=== PATIENT | female | born 1970 | race Caucasian/White ===

== ENCOUNTER 2019-07-29 15:04 | Outpatient (CLI) | payer MEDICAID ==
[2019-07-29 18:38] LABS: BASOPHILS % (AUTO) 0.4 %; EOSINOPHILS # (AUTO) 0.1 10^3/uL (0.0-0.7); EOSINOPHILS % (AUTO) 1.7 %; HGB - HEMOGLOBIN 11.3 g/dL (12.0-16.0); LYMPHOCYTES # (AUTO) 2.1 10^3/uL (1.5-3.5); LYMPHOCYTES % (AUTO) 26.5 %; MEAN CORPUSCULAR HEMOGLOBIN 24.6 pg (27.0-31.0); MEAN CORPUSCULAR HGB CONC 30.4 g/dL (32.0-36.0); MEAN CORPUSCULAR VOLUME 80.9 fL (81.0-99.0); MONOCYTES # (AUTO) 0.6 10^3/uL (0.0-1.0); MONOCYTES % (AUTO) 7.3 %; NEUTROPHILS % (AUTO) 63.8 %; PLT - PLATELET COUNT 173 10^3/uL (130-450); RED CELL DISTRIBUTION WIDTH 18.6 % (12.0-15.0); WHITE BLOOD COUNT 7.8 x10^3/uL (4.8-10.8)
[2019-07-29 18:46] LABS: ALBUMIN/GLOBULIN RATIO 0.7 (1.0-2.2); ALKALINE PHOSPHATASE 142 IU/L (42-121); ALT ALANINE AMINOTRANSFERASE 25 IU/L (10-60); AST ASPARTATE AMINOTRANSFERASE 43 IU/L (10-42); BILIRUBIN,TOTAL 0.8 mg/dL (0.2-1.0); BUN - BLOOD UREA NITROGEN 10 mg/dL (6-20); CALCIUM 8.9 mg/dL (8.5-10.3); CARBON DIOXIDE - CO2 25 mmol/L (21-32); CHLORIDE 105 mmol/L (101-111); CHOL/HDL RATIO 3.2 (<4.4); CHOLESTEROL 97 mg/dL; CREATININE 0.4 mg/dL (0.4-1.0); GLUCOSE 137 mg/dL (70-100); HDL CHOLESTEROL 30 mg/dL; LDL CHOLESTEROL,CALCULATED 52 mg/dL; LDL/HDL RATIO 1.7 (<4.4); SODIUM 136 mmol/L (135-145); TOTAL PROTEIN 7.3 g/dL (6.7-8.2); VLDL CHOLESTEROL 15 mg/dL
[2019-07-29 19:03] LABS: HB2 TOTAL 11.7 g/dL; HEMOGLOBIN A1C 0.53 g/dL; HEMOGLOBIN A1C % 6.3 % (4.6-6.2)
[2019-07-29 20:14] LABS: FREE T4 (FREE THYROXINE) 4.62 ng/dL (0.58-1.64)
== END 2019-07-29 23:59 | disposition home or self-care (01) ==
LOC: LAB.WCP 15:04
PROVIDERS: ATTEND Physician Assistant
DX: Z00.00 Encounter for general adult medical examination without abnormal findings (principal)
CPT/HCPCS: 36415; 80053; 80061; 83036; 83721; 84439; 84443; 85025

== ENCOUNTER 2019-08-21 11:38 | Outpatient (CLI) | payer MEDICAID ==
--- NOTE | 2019-08-21 14:14 | Ultrasound Report ---
PROCEDURE: Abdomen Limited INDICATIONS: HYPERTHYROID, ELEVATED LFTS TECHNIQUE: Real-time focused scanning was performed of the right upper quadrant, with image documentation. COMPARISON: None available FINDINGS: Technically limited study secondary to patient body habitus and lack of good acoustic wind ows. Suboptimal visualization of the liver parenchyma. The parenchyma is diffusely hyperechoic, coarse, an d heterogeneous. A discrete mass is not identified, but would easily be missed. The gallbladder is normal without stones, sludge, wall thickening, or pericholecystic fluid. The bili ryley tree is nondilated. The pancreas was not visible. The right kidney measures 11.2 cm in length. A few small echogenic foci are present in the mid to low er pole collecting system, the largest measuring 4 mm. No hydronephrosis. No obvious right upper quadrant fluid. IMPRESSION: 1. Limited study due to lack of good acoustic window. 2. Heterogeneous and hyperechoic hepatic parenchyma is incompletely evaluated. Overall parenchyma mckeon ses the possibility of intrinsic liver disease and/or steatosis. Further evaluation with cross-sectio nal imaging, MRI or CT is recommended. 3. No biliary dilatation or gallbladder pathology. 4. Nonvisualization of the pancreas. 5. Nonobstructing right intrarenal calcifications. Reviewed by: Wilda Grimes MD on 08/21/2019 2:13 PM PDT Approved by: Wilda Grimes MD on 08/21/2019 2:13 PM PDT Station ID: [id number]
--- NOTE | 2019-08-21 14:19 | Ultrasound Report ---
PROCEDURE: Head or Neck Soft Tissue INDICATIONS: HYPERTHYROID, ELEVATED LFTS TECHNIQUE: Real-time scanning was performed of the thyroid gland, with image documentation. COMPARISON: None. FINDINGS: Right: The right thyroid lobe measures 5.6 x 2.8 x 2.3 cm. Left: The left thyroid lobe measures 6.2 x 2.5 x 2.2 cm. Isthmus: 9 mm Lobulated and heterogeneous morphology of the entire thyroid gland with multiple ill-defined areas of nodularity and to a lesser extent cystic changes. No dominant nodules are identified. There are enlarged cervical chain lymph nodes found bilaterally, the largest on the right measures 1. 4 cm in short axis and large some left measures 1.0 cm in short axis. Both maintain a fatty hilum, bu t diffusely thickened cortex measuring 5 mm on the right and 4 mm on the left. IMPRESSION: 1. Enlarged thyroid gland with heterogeneous appearance. Findings are suggestive of thyroiditis. 2. There is reactive cervical chain adenopathy. Reviewed by: Wilda Grimes MD on 08/21/2019 2:18 PM PDT Approved by: Wilda Grimes MD on 08/21/2019 2:18 PM PDT Station ID: [id number]
== END 2019-08-21 11:39 | disposition home or self-care (01) ==
LOC: DI 11:38
PROVIDERS: ATTEND Physician Assistant
DX: E04.9 Nontoxic goiter, unspecified (principal); R59.0 Localized enlarged lymph nodes; N28.89 Other specified disorders of kidney and ureter; R93.2 Abnormal findings on diagnostic imaging of liver and biliary tract
CPT/HCPCS: 76536; 76705

== ENCOUNTER 2019-10-30 07:00 | Outpatient (CLI) | payer MEDICAID ==
[2019-10-30 19:07] LABS: THYROID STIMULATING HORMONE < 0.08 uIU/mL (0.34-5.60)
[2019-10-30 19:09] LABS: FREE T3 9.56 pg/mL (2.5-3.9); FREE T4 (FREE THYROXINE) 4.11 ng/dL (0.58-1.64)
[2019-10-30 20:12] LABS: HEMOGLOBIN A1c% 6.6 % (4.27-6.07)
[2019-10-31 13:21] LABS: HEPATITIS C ANTIBODY REACTIVE (NON-REACTIVE)
[2019-10-31 13:22] LABS: HEPATITIS B SURFACE ANTIGEN NON-REACTIVE (NON-REACTIVE)
[2019-11-02 08:30] LABS: HCV RNA QNT 6.22 Log IU/mL (NOT DETECTED); HCV RNA QUANT RT PCR 1670000 IU/mL (NOT DETECTED)
== END 2019-10-30 23:59 | disposition home or self-care (01) ==
LOC: LAB.WCP 07:00
PROVIDERS: ATTEND Physician Assistant
DX: E11.9 Type 2 diabetes mellitus without complications (principal); R79.89 Other specified abnormal findings of blood chemistry; E05.90 Thyrotoxicosis, unspecified without thyrotoxic crisis or storm
CPT/HCPCS: 36415; 83036; 84439; 84443; 84481; 86803; 87340

== ENCOUNTER 2019-11-25 20:42 | Inpatient (IN) | payer MEDICAID ==
[2019-11-25] MEDS ORDERED: SODIUM CHLORIDE 0.9% 1,000 ML IV STA ×2 (20:57→23:26)
[2019-11-25 21:14] LABS: BASOPHILS % (AUTO) 0.5 %; EOSINOPHILS # (AUTO) 0.1 10^3/uL (0.0-0.7); HGB - HEMOGLOBIN 11.7 g/dL (12.0-16.0); LYMPHOCYTES # (AUTO) 2.7 10^3/uL (1.5-3.5); LYMPHOCYTES % (AUTO) 32.1 %; MEAN CORPUSCULAR HEMOGLOBIN 26.5 pg (27.0-31.0); MEAN CORPUSCULAR VOLUME 85.7 fL (81.0-99.0); MEAN PLATELET VOLUME 12.2 fL (7.9-10.8); MONOCYTES # (AUTO) 0.7 10^3/uL (0.0-1.0); MONOCYTES % (AUTO) 8.8 %; NEUTROPHILS # (AUTO) 4.7 10^3/uL (1.5-6.6); NEUTROPHILS % (AUTO) 57.2 %; PLT - PLATELET COUNT 143 10^3/uL (130-450); RED BLOOD COUNT 4.41 10^6/uL (4.20-5.40); RED CELL DISTRIBUTION WIDTH 13.3 % (12.0-15.0); WHITE BLOOD COUNT 8.3 x10^3/uL (4.8-10.8)
[2019-11-25 21:16] LABS: VBG BASE EXCESS -1.4 mmol/L (-2 - +2); VBG PCO2 43.4 mmHg (41-51); VBG PH 7.362 (7.31-7.41); VBG PO2 40.7 mmHg (25-47); VBG TOTAL CO2 25.4 mmol/L (24-29)
--- NOTE | 2019-11-25 21:16 | ED Physician Documentation ---
History of Present Illness - Stated complaint Stated Complaint: HIGH BS - Chief complaint Chief Complaint: General - History obtained from History obtained from: Patient - History of Present Illness Timing: How many days ago (3) - Additonal information Additional information: 49-year-old female with history of type 2 diabetes who is not on medication has developed polyuria polydipsia blurred vision headache and dizziness over the past 3 days. She noticed yesterday that she was not able to drive her blurry vision was so bad. She went to see her doctor today got a telephone call and she and her come to the emergency department immediately with a blood sugar of 1030. Review of Systems Constitutional: denies: Fever Eyes: reports: Other (blurring of the vision). denies: Decreased vision Ears: denies: Ear pain Nose: denies: Rhinorrhea / runny nose, Congestion Throat: reports: Other (dry mouth, very dry mouth). denies: Sore throat Cardiac: denies: Chest pain / pressure, Palpitations Respiratory: denies: Dyspnea, Cough GI: denies: Abdominal Pain, Abdominal Swelling, Nausea, Vomiting : reports: Frequency. 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 - Allergies Allergies/Adverse Reactions: Allergies Allergy/AdvReac Type Severity Reaction Status Date / Time bee venom protein (honey bee) Allergy Unknown Verified 11/25/19 21:00 strawberry Allergy Unknown Verified 11/25/19 21:00 - Social History Does the pt smoke?: No Smoking Status: Never smoker Does the pt drink ETOH?: No Does the pt have substance abuse?: No - Immunizations Immunizations are current?: Yes - POLST Patient has POLST: No PD ED PE NORMAL - Vitals Vital signs reviewed: Yes (tachy and hypertensive ) - General General: Alert and oriented X 3, No acute distress, Well developed/nourished - HEENT HEENT: Atraumatic, PERRL, EOMI - Neck Neck: Supple, no meningeal sign, No bony TTP - Cardiac Cardiac: No murmur, Other (tachy) - Respiratory Respiratory: No respiratory distress, Clear bilaterally - Abdomen Abdomen: Normal bowel sounds, Soft, Non tender, Non distended, No organomegaly - Back Back: No CVA TTP, No spinal TTP - Derm Derm: Normal color, Warm and dry, No rash - Extremities Extremities: No deformity, Normal ROM s pain, No edema, No calf tenderness / cord - Neuro Neuro: Alert and oriented X 3, behavioral geneticist 2-12 intact, No motor deficit, No sensory deficit, Normal speech Eye Opening: Spontaneous Motor: Obeys Commands Verbal: Oriented GCS Score: 15 - Psych Psych: Normal mood, Normal affect Results - Vitals Vitals: Vital Signs - 24 hr 11/25/19 11/25/19 11/25/19 20:47 20:53 21:41 Temperature 37.1 C 37.1 C 37.1 C Heart Rate 120 H 120 H 82 Respiratory 22 22 15 Rate Blood Pressure 141/110 H 141/110 H 116/65 O2 Saturation 97 97 97 11/25/19 22:29 Temperature 37.1 C Heart Rate 81 Respiratory 16 Rate Blood Pressure 107/62 O2 Saturation 98 Oxygen O2 Source Room air - Labs Labs: Laboratory Tests 11/25/19 11/25/19 11/25/19 21:08 21:08 21:08 WBC 8.3 RBC 4.41 Hgb 11.7 L Hct 37.8 MCV 85.7 MCH 26.5 L MCHC 31.0 L RDW 13.3 Plt Count 143 MPV 12.2 H Neut # (Auto) 4.7 Lymph # (Auto) 2.7 [place] # (Auto) 0.7 Eos # (Auto) 0.1 Baso # (Auto) 0.0 Absolute Nucleated RBC 0.00 Nucleated RBC % 0.0 VBG pH VBG pCO2 VBG pO2 VBG HCO3 VBG Total CO2 VBG O2 Saturation VBG Base Excess Sodium 116 L* Potassium 4.4 Chloride 76 L* Carbon Dioxide 26 Anion Gap 14.0 H BUN 9 Creatinine 1.3 H Estimated GFR (MDRD) 44 L Glucose 1170 H* Estimat Average Glucose 269 H Hemoglobin A1c % 11.0 H Calcium 8.7 Phosphorus 5.4 H Magnesium 2.1 Total Bilirubin 0.8 AST 35 ALT 31 Alkaline Phosphatase 162 H Total Protein 7.4 Albumin 3.5 Globulin 3.9 Albumin/Globulin Ratio 0.9 L Lipase Cancelled Urine Color Urine Clarity Urine pH Ur Specific [place] Urine Protein Urine Glucose (UA) Urine Ketones Urine Occult Blood Urine Nitrite Urine Bilirubin Urine Urobilinogen Ur Leukocyte Esterase Urine RBC Urine WBC Ur Squamous Epith Cells Urine Bacteria Ur Microscopic Review Urine Culture Comments Urine HCG, Qual Serum Ketones NEGATIVE 11/25/19 11/25/19 21:08 22:03 WBC RBC Hgb Hct MCV MCH MCHC RDW Plt Count MPV Neut # (Auto) Lymph # (Auto) [place] # (Auto) Eos # (Auto) Baso # (Auto) Absolute Nucleated RBC Nucleated RBC % VBG pH 7.362 VBG pCO2 43.4 VBG pO2 40.7 VBG HCO3 24.1 VBG Total CO2 25.4 VBG O2 Saturation 75.8 VBG Base Excess -1.4 Sodium Potassium Chloride Carbon Dioxide Anion Gap BUN Creatinine Estimated GFR (MDRD) Glucose Estimat Average Glucose Hemoglobin A1c % Calcium Phosphorus Magnesium Total Bilirubin AST ALT Alkaline Phosphatase Total Protein Albumin Globulin Albumin/Globulin Ratio Lipase Urine Color YELLOW Urine Clarity CLEAR Urine pH 6.0 Ur Specific [place] <=1.005 Urine Protein NEGATIVE Urine Glucose (UA) >=1000 H Urine Ketones NEGATIVE Urine Occult Blood MODERATE H Urine Nitrite NEGATIVE Urine Bilirubin NEGATIVE Urine Urobilinogen 0.2 (NORMAL) Ur Leukocyte Esterase NEGATIVE Urine RBC 6-10 H Urine WBC 0-3 Ur Squamous Epith Cells RARE Squamous Urine Bacteria Rare Ur Microscopic Review INDICATED Urine Culture Comments NOT INDICATED Urine HCG, Qual NEGATIVE Serum Ketones Procedures - IVC sono (time) 0918 Bedside IVC sono: IVC measures (cm) (0.87), IVC collapsed c insp (cm) (complete), Dehydration (est 2 liters deficit) PD MEDICAL DECISION MAKING - ED course Complexity details: reviewed results, re-evaluated patient, considered differential, d/w patient ED course: 49 y/o female with markedly elevated blood sugar with untreated type 2 diabetes. She had attempted to start metformin 3 months ago and found this intolerable. Her A1C at that time was 6.3 and she was relegated to diet control. She has 3 days of symptoms of elevated blood sugar and is found to have extremely high blood sugar. saline is begun with the calculated effective plasma osmolality is (116 X 2) + 1170/18 =297. Ketones and pH are normal. Her corrected sodium is normal at 136. Her potassium is normal at 4.4. The patient has an estimated volume deficit of 2 liters by interrogation of the IVC and initially a one liter bolus of saline is administered. This is followed by 0.45% saline with 20meq KCL at 500ml/hr, an insulin bolus of 9 units regular IV and a drip at 9 units per hour (0.1units/kg 89kg for both). Dr. Sierra is consulted in the case and graciously agrees to care for the patient in the hospital. Departure - Departure Disposition: [facility] DC/Xfer Clinical Impression: Type 2 diabetes mellitus with hyperosmolar hyperglycemic state (HHS)
[2019-11-25 21:22] LABS: KETONES, SERUM (ACETEST) NEGATIVE (NEGATIVE)
[2019-11-25 21:43] LABS: ALBUMIN 3.5 g/dL (3.2-5.5); ALBUMIN/GLOBULIN RATIO 0.9 (1.0-2.2); ALKALINE PHOSPHATASE 162 IU/L (42-121); ALT ALANINE AMINOTRANSFERASE 31 IU/L (10-60); AST ASPARTATE AMINOTRANSFERASE 35 IU/L (10-42); BILIRUBIN,TOTAL 0.8 mg/dL (0.2-1.0); BUN - BLOOD UREA NITROGEN 9 mg/dL (6-20); CALCIUM 8.7 mg/dL (8.5-10.3); CARBON DIOXIDE - CO2 26 mmol/L (21-32); CREATININE 1.3 mg/dL (0.4-1.0); MAGNESIUM 2.1 mg/dL (1.7-2.8); PHOSPHORUS 5.4 mg/dL (2.5-4.6); TOTAL PROTEIN 7.4 g/dL (6.7-8.2)
[2019-11-25 21:46] LABS: CHLORIDE 76 mmol/L (101-111); SODIUM 116 mmol/L (135-145)
[2019-11-25 21:47] LABS: GLUCOSE 1170 mg/dL (70-100)
[2019-11-25 22:10] LABS: BILIRUBIN,URINE NEGATIVE (NEGATIVE); CLARITY,URINE CLEAR (CLEAR); GLUCOSE, URINE (UA) >=1000 mg/dL (NEGATIVE); KETONES,URINE (UA) NEGATIVE (NEGATIVE); LEUKOCYTE ESTERASE, URINE NEGATIVE (NEGATIVE); NITRITE,URINE NEGATIVE (NEGATIVE); OCCULT BLOOD,URINE MODERATE (NEGATIVE); PROTEIN,URINE NEGATIVE (NEGATIVE); UROBILINOGEN,URINE 0.2 (NORMAL) E.U./dL (NORMAL)
[2019-11-25 22:12] LABS: HCG UR QUAL NEGATIVE
[2019-11-25 22:18] LABS: BACTERIA,URINE Rare /HPF (None Seen); SQUAMOUS EPITHELIAL CELL,UR RARE Squamous (<= Few)
[2019-11-25] MEDS ORDERED: INSULIN REGULAR HUMAN 100 UNIT in SODIUM CHLORIDE 0.9% 100ML 99 ML IV STA (22:28)
[2019-11-25] MEDS ORDERED: INSULIN REGULAR HUMAN 100 UNIT/1 ML 10 ML MDV IVP STA (22:28)
[2019-11-25] MEDS ORDERED: ONDANSETRON 4 MG/2 ML VIAL IVP PRN (22:50)
[2019-11-25] MEDS ORDERED: SODIUM CHLORIDE FLUSH 0.9% 10 ML SYRINGE IVP PRN (22:50)
[2019-11-25] MEDS ORDERED: ACETAMINOPHEN 325 MG TABLET PO PRN (22:50)
[2019-11-25] MEDS ORDERED: INSULIN REGULAR HUMAN 300 UNIT/3 ML VIAL ONE (22:54)
--- NOTE | 2019-11-25 22:57 | HISTORY & PHYSICAL EXAMINATION ---
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 She saw the mash processing operator today for thyroid work-up. The mash processing operator is considering starting her on a new medication and was ensuring that her labs were appropriate to do so. However the blood indicated significantly elevated blood glucose. In hindsight the patient reports that she has been very thirsty lately and also has significantly increased urine output. Furthermore, yesterday she tried to give her grandson a ride somewhere but had to return home because her vision was very blurry. 3 months ago she was started on metformin after her hemoglobin A1c was noted to be 6.4. She did not tolerate metformin and decided to treat diabetes with diet control. Work-up in the ED today showed an A1C of 11 and a blood glucose of 1170. At bedside she denies chest pain, dyspnea, abdominal pain, nausea, vomiting, fever or chills. The rest of her history is unremarkable. 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 Living arrangement: At home Living Situation: With family Social History Notes: She does not use tobacco products or illicit substances. She denies alcohol use. - POLST Patient has POLST: No POLST Status: Full Code Meds/Allgy - Allergies Allergies/Adverse Reactions: Allergies Allergy/AdvReac Type Severity Reaction Status Date / Time bee venom protein (honey bee) Allergy Unknown Verified 11/25/19 21:00 strawberry Allergy Unknown Verified 11/25/19 21:00 Review of Systems - Constitutional Constitutional: denies: Fatigue, Fever, Chills - Eyes Eyes: denies: Pain - Ears, Nose & Throat Ears, Nose & Throat: reports: Hoarseness. denies: Ear pain, Sore throat - Cardiovascular Cariovascular: denies: Irregular heart rate, Chest pain, Edema, Lightheadedness, Syncope, Exertional dyspnea - Respiratory Respiratory: denies: Cough, Sputum production, Wheezing, Snoring, SOB at rest, S OB with exertion - Gastrointestinal Gastrointestinal: denies: Abdominal pain, Abdominal distention, Diarrhea, Nausea, Vomiting, Reflux/heartburn - Genitourinary Genitourinary: denies: Dysuria, Frequency, Urgency, Hematuria - Musculoskeletal Musculoskeletal: denies: Muscle pain, Back pain, Muscle aches - Integumentary Integumentary: denies: Rash, Pruritis, Lesions, Dryness - Neurological Neurological: denies: General weakness, Focal weakness, Headache, Dizziness, Numbness - Psychiatric Psychiatric: denies: Depression, Anxiety - Endocrine Endocrine: reports: Polyuria, Polydypsia - Hematologic/Lymphatic Hematologic/Lymphatic: denies: Anemia, Bruising, Petechiae Prior Level of Functionality: Patient is independent of activities of daily living Exam - Vital Signs Vital Signs: Vital Signs x48h Temp Pulse Resp BP Pulse Ox 11/25/19 22:29 37.1 C 81 16 107/62 98 11/25/19 21:41 37.1 C 82 15 116/65 97 11/25/19 20:53 37.1 C 120 H 22 141/110 H 97 11/25/19 20:47 37.1 C 120 H 22 141/110 H 97 - Physical Exam General Appearance: positive: No acute distress, Alert Eyes Bilateral: positive: PERRL, EOMI ENT: positive: No signs of dehydration Neck: positive: No JVD, Trachea midline Respiratory: positive: Chest non-tender, No respiratory distress, Breath sounds nml. negative: Wheezes, Rales, Rhonchi Cardiovascular: positive: Tachycardia Abdomen: positive: Non-tender, No organomegaly, Nml bowel sounds, No distention. negative: Guarding, Rebound Back: positive: Nml inspection Skin: positive: Color nml Extremities: positive: Non-tender, Full ROM, Nml appearance, No pedal edema Neurologic/Psychiatric: positive: Oriented x3, Mood/affect nml Conclusion/Plan - Problem List (1) Type 2 diabetes mellitus with hyperosmolar hyperglycemic state (HHS) Conclusion/Plan: Patient did not tolerate metformin and has been attempting to control her blood sugar with diet only. Hemoglobin A1c today was 11. Blood glucose was 1170. Patient did not have an anion gap or ketones. Patient was started on insulin drip and admitted to the ICU. Patient receiving IV hydration with half-normal saline +20 mEq of potassium at 150 mils per hour. Patient would need to see a diabetic counselor upon discharge. (2) Hyperthyroidism Conclusion/Plan: Patient is not on any medications. We will check a TSH. She saw her mash processing operator today before presenting to the emergency department. Work-up is in process with plan to start her on an unspecified medication in the near future. (3) Hypertension Conclusion/Plan: Currently normotensive. Receiving IV hydration for HHNK. We will resume antihypertensive when appropriate to do so. - Lab Results Fish Bones: 11/25/19 21:08 11/25/19 23:25 Core Measures - Anticipated LOS I expect patient to be DC'd or transferred within 96 hours.: Yes - DVT/VTE - Prophylaxis VTE/DVT Device ordered at admit?: Yes VTE/DVT Prophylaxis med ordered at admit?: Yes
[2019-11-25] MEDS ORDERED: POTASSIUM CHLORIDE INJ 20 MEQ in SODIUM CHLORIDE 0.45% 1,000 ML IV SCH (23:00)
[2019-11-25] MEDS ORDERED: INSULIN REGULAR HUMAN 100 UNIT in SODIUM CHLORIDE 0.9% 100ML 99 ML IV SCH (23:00)
[2019-11-25] MEDS ORDERED: SODIUM CHLORIDE 0.45% 1,000 ML IV ONE (23:05)
[2019-11-25] MEDS ORDERED: POTASSIUM CHLOR 10 MEQ/100 ML 10 MEQ/100 ML BAG IV ONE (23:27)
[2019-11-25 23:41] LABS: CALCIUM 8.4 mg/dL (8.5-10.3); CREATININE 1.1 mg/dL (0.4-1.0); MAGNESIUM 2.2 mg/dL (1.7-2.8)
[2019-11-26] MEDS ORDERED: SODIUM CHLORIDE 0.9% 1,000 ML IV ONE (00:54)
[2019-11-26 01:03] LABS: CALCIUM 8.4 mg/dL (8.5-10.3); CREATININE 1.1 mg/dL (0.4-1.0)
[2019-11-26 02:01] LABS: CALCIUM 8.3 mg/dL (8.5-10.3); CREATININE 0.9 mg/dL (0.4-1.0)
[2019-11-26] MEDS: NS W/20 MEQ KCL 1,000 ML IV SCH ×2 (02:36→10:10)
[2019-11-26] MEDS: SODIUM CHLORIDE FLUSH 0.9% 10 ML SYRINGE IVP SCH ×2 (02:38→08:34)
[2019-11-26 03:01] LABS: CALCIUM 8.3 mg/dL (8.5-10.3); CREATININE 0.8 mg/dL (0.4-1.0); MAGNESIUM 2.2 mg/dL (1.7-2.8)
[2019-11-26 05:40] LABS: BASOPHILS % (AUTO) 0.3 %; EOSINOPHILS # (AUTO) 0.2 10^3/uL (0.0-0.7); HGB - HEMOGLOBIN 10.6 g/dL (12.0-16.0); LYMPHOCYTES # (AUTO) 4.4 10^3/uL (1.5-3.5); LYMPHOCYTES % (AUTO) 42.4 %; MEAN CORPUSCULAR HEMOGLOBIN 26.6 pg (27.0-31.0); MEAN CORPUSCULAR HGB CONC 33.2 g/dL (32.0-36.0); MEAN CORPUSCULAR VOLUME 79.9 fL (81.0-99.0); MEAN PLATELET VOLUME 11.3 fL (7.9-10.8); MONOCYTES # (AUTO) 0.9 10^3/uL (0.0-1.0); MONOCYTES % (AUTO) 8.3 %; NEUTROPHILS # (AUTO) 4.9 10^3/uL (1.5-6.6); NEUTROPHILS % (AUTO) 46.7 %; PLT - PLATELET COUNT 123 10^3/uL (130-450); RED BLOOD COUNT 3.99 10^6/uL (4.20-5.40); RED CELL DISTRIBUTION WIDTH 13.2 % (12.0-15.0); WHITE BLOOD COUNT 10.5 x10^3/uL (4.8-10.8)
[2019-11-26 05:48] LABS: MAGNESIUM 2.1 mg/dL (1.7-2.8)
[2019-11-26 05:56] LABS: CHOL/HDL RATIO 3.7 (<4.4); CHOLESTEROL 70 mg/dL; HDL CHOLESTEROL 19 mg/dL; LDL CHOLESTEROL,CALCULATED 31 mg/dL; LDL/HDL RATIO 1.6 (<4.4); VLDL CHOLESTEROL 20 mg/dL
[2019-11-26 06:21] LABS: CALCIUM 8.2 mg/dL (8.5-10.3); CREATININE 0.6 mg/dL (0.4-1.0)
[2019-11-26] MEDS ORDERED: INSULIN GLARGINE 300 UNIT/3 ML PEN SUBQ SCH (06:21)
[2019-11-26] MEDS ORDERED: PANTOPRAZOLE 40 MG TABLET PO SCH (07:00)
[2019-11-26 07:53] LABS: ALBUMIN 3.2 g/dL (3.2-5.5); PHOSPHORUS 4.1 mg/dL (2.5-4.6)
[2019-11-26] MEDS: INSULIN ASPART 300 UNIT/3 ML PEN SUBQ SCH ×2 (08:31→11:59)
[2019-11-26] MEDS ORDERED: ENOXAPARIN 40 MG/0.4 ML SYRINGE SUBQ SCH (09:00)
--- NOTE | 2019-11-26 10:24 | PHARMACY PROGRESS NOTE ---
- Best Possible Medication History Admit Date and Time: 11/25/19 2142 Processed by: Pharmacy Medication History completed: Yes Patient Interview: Completed Secondary Source(s): Physician records (GANESH INTERVIEWED BY INSURANCE FOLLOW UP REPRESENTATIVE. PATIENT ABLE TO CONFIRM HOME MEDICATIONS. PATIENT REPORTS SHE HAS STOPPED TAKING THE FOLLOWING MEDICATIONS BECAUSE THEY WERE MAKING HER SICK WITH HEADACHES AND DID NOT FEEL GOOD ON ANY OF THEM.), Pharmacy records, Insurance records As the person ultimately responsible for medication therapy, providers are able to order a medication from an existing home medication list in [facility] via the "Reconcile Routine" prior to Confirmation of that medication by field support specialist. Such practice is discouraged except when the physician, in their clinical judgment, deems that a medical need exists for a medication without regard to previous use. PATIENT HAS STOPPED TAKING THE FOLLOWING MEDICATIONS: METFORMIN, CYMBALTA, FLEXERIL, AND CELEBREX DUE TO MEDICATIONS MAKING HER SICK. GANESH INTERVIEWED BY INSURANCE FOLLOW UP REPRESENTATIVE. PATIENT ABLE TO CONFIRM HOME MEDICATIONS. PATIENT REPORTS SHE HAS STOPPED TAKING THE FOLLOWING MEDICATIONS BECAUSE THEY WERE MAKING HER SICK WITH HEADACHES AND DID NOT FEEL GOOD ON ANY OF THEM.
--- NOTE | 2019-11-26 12:26 | DISCHARGE SUMMARY ---
Discharge Summary Admit Date: 11/25/19 Discharge Date: 11/26/19 Discharging Provider: Dina Milligan MD Primary Care Provider: SHELIA Linder Code Status: Attempt Resuscitation Condition at Discharge: Good Discharge Disposition: 01 Home, Self Care - DIAGNOSES Discharge Diagnoses with Status of Each Condition: 1. Type 2 diabetes mellitus with hyperosmolar hyperglycemic state 2. Hypertension 3. Hyperthyroidism 4. Acute kidney injury 5. Dehydration 6. History of Hep C 7. 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 She saw the harbor boat pilot today for thyroid work-up. The harbor boat pilot is considering starting her on a new medication and was ensuring that her labs were appropriate to do so. However the blood indicated significantly elevated blood glucose. In hindsight the patient reports that she has been very thirsty lately and also has significantly increased urine output. Furthermore, yesterday she tried to give her grandson a ride somewhere but had to return home because her vision was very blurry. 3 months ago she was started on metformin after her hemoglobin A1c was noted to be 6.4. She did not tolerate metformin and decided to treat diabetes with diet control. Work-up in the ED today showed an A1C of 11 and a blood glucose of 1170. At bedside she denies chest pain, dyspnea, abdominal pain, nausea, vomiting, fever or chills. The rest of her history is unremarkable. 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 She received aggressive IV hydration. Within 12 hours her glucose was able to come down enough that she was transitioned to Lantus and a diabetic diet. Creatinine was initially 1.3 and came down to 0.6 by the time of discharge. There is a large knowledge deficit about her diabetes. She says that a year ago she was told that she needed to take metformin. However, for unclear reasons, she stopped taking metformin, Celebrex, Cymbalta. 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 Both ICU nurse, and rn diabetes educator (Natty) spent some time with this patient teaching her about how to check your glucose, give yourself long-acting insulin or short acting insulin. The patient's blood glucose is come down to 195. But was bouncing back up to 327 by noon. She did receive sliding scale insulin. Lantus 10 units the night before. 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 She felt that her daughter's need for her was greater than her need to educate herself right now. She promised to continue to read and learn what we have given her. As such we gave her as much information as we could in the short time she was with this. I have discharged her with clear discharge instructions on the use of her Lantus, sliding scale. She already has an appoint with endocrinology for hyperthyroidism and will now see endocrinology for type 2 diabetes mellitus[address] She sees Dr. James Ruiz at [facility]. During her stay dehydration resolved. Acute kidney injury resolved. Blood pressure was controlled. She was 115-120 systolic. She is continued on Prinivil, Singulair, albuterol, Lyrica at home. She is registered with the diabetic education center and promises to return. I was very firm and wanting her to stay 2 midnights. We felt we needed the time to control her sugar, educate her further. But she was adamant she wanted to leave. We did note that she had anemia, thrombocytopenia. History of hepatitis C. Unable to verify treatment in the past. Her primary care provider may want to consider ultrasound to follow through on qualitative RNA and ultrasound of the liver. At discharge, temperature was 36.8. Pulse was 98. Blood pressure 120/67. Respirations were 13. She is 98% on room air. She is an alert oriented white female who is 5 feet 5 inches tall, weighs 93 kg. Pale. Neck is supple. Lungs are clear to auscultation and there is no increased respiratory effort with walking, talking, or getting out of the bed. Lungs were clear. PMI had a regular rate and rhythm. Abdomen was benign, normal bowel sounds, nontender. Extremities were without edema. Greater than 30 minutes was spent coordinating discharge. Going over discharge instructions. The use of her insulin pen, needles, sliding scale. - ALLERGIES Allergies/Adverse Reactions: Allergies Allergy/AdvReac Type Severity Reaction Status Date / Time bee venom protein (honey bee) Allergy Unknown Verified 11/25/19 21:00 strawberry Allergy Unknown Verified 11/25/19 21:00 - MEDICATIONS Home Medications: Ambulatory Orders Medication Instructions Recorded Confirmed Albuterol Sulfate [Albuterol 2 puffs INH Q4H PRN 11/26/19 11/26/19 Sulfate Hfa] Blood Sugar Diagnostic [Glucometer 1 each QID #120 strip 11/26/19 Strips] Blood-Glucose Meter [Glucometer] 1 each MC DAILY #1 each 11/26/19 Insulin Glargine [Lantus Solostar] 14 unit SUBQ QPM #2 pen 11/26/19 Insulin Glulisine [Apidra Solostar] 0 unit SUBQ TIDWM #2 each 11/26/19 Lancets 1 each MC QID #120 each 11/26/19 Lisinopril [Prinivil] 5 mg PO DAILY 11/26/19 11/26/19 Montelukast Sodium [Singulair] 5 mg PO DAILY 11/26/19 11/26/19 Pen Needle, Diabetic [Insulin Pen 1 each QID #150 dis.needle 11/26/19 Needle] Pregabalin [Lyrica] 100 mg PO BID 11/26/19 11/26/19 - LABS Result Diagrams: 11/26/19 05:15 11/26/19 05:15
--- NOTE | 2019-11-26 12:30 | Discharge Plan ---
Discharge Plan Problem Reviewed?: Yes Disposition: Home, Self Care Condition: Good Prescriptions: Insulin Glulisine [Apidra Solostar] 0 unit SUBQ TIDWM #2 each Blood-Glucose Meter [Glucometer] 1 each DAILY #1 each Blood Sugar Diagnostic [Glucometer Strips] 1 each QID #120 strip Pen Needle, Diabetic [Insulin Pen Needle] 1 each QID #150 dis.needle Lancets 1 each QID #120 each Insulin Glargine [Lantus Solostar] 14 unit SUBQ QPM #2 pen Diet: Diabetic Activity Restrictions: Activity as Tolerated Shower Restrictions: No Driving Restrictions: No Instruction Topics: Hyperglycemia, Diabetes Type 2 Coping, Blood Sugar Check, Diabetes Healthy Meals, Diabetes Carbs, Diabetes Manage A1C Test Health Concerns: You presented to our emergency room at the instruction of your rib cutter. You had gone to see him for thyroid disorder and an elevated thyroid hormone, but he found your glucose to be severely elevated to over thousand. You do not have ketoacidosis. However you were placed in the intensive care unit because you need to be placed on an insulin drip for the short-term. You also required quite a bit of IV hydration. We were able to bring down your glucose to an acceptable level and transitioned you to a once a day long-acting insulin called Lantus. We also feel you will need short acting insulin to give yourself with meals. Plan of Treatment: 1. Lantus, long-acting insulin, will be given at night. 14 units at night. Before bedtime. 2. Short acting insulin should be given before meals meals 3 times a day. It should be given within 10 minutes before eating. You should give yourself insulin on the basis of the following scale: 150-175 > 2 units of Apidra short acting 176-200> 4 units of Apidra short acting 201-225> 6 units of Apidra short acting 226-250> 8 units of Apidra short acting 251-275> 10 units of Apidra short acting 276- 300> 12 units of Apidra short acting 301-325> 14 units of Apidra short acting 3. if you are consistently having to use multiple doses of Apidra short acting, increase your Lantus by 2 units at night, each night, until your fasting glucose is under 120. 4. Please see your rib cutter soon as possible 5. We have made a referral for you to see the diabetic education center here at the medical ambulatory clinic of [facility]. Please keep those appointments. Care Goals: To develop control of your diabetes so that you do not have complications including blindness, kidney failure requiring dialysis, peripheral vascular disease resulting in amputation of toes and feet, severe peripheral neuropathy, stroke or heart attack. Goal is to always be below 7% glycosylated hemoglobin Assessment: Patient is just beginning to understand the complexity of the disease and its management. She is met with nutrition services, and preliminary education with trackless trolley driver, Natty. 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 She promises to follow through. Follow-Up Care: [facility] - Diabetes Ed No Smoking: If you smoke, Please STOP! Call for help. Follow-up with: Henrietta Lee PA [Primary Care Provider] - James Ruiz MD [Physician No Access] -
[2019-11-26 13:25] VITALS: BP 120/67
== END 2019-11-26 13:42 | disposition home or self-care (01) | DRG 638 ==
LOC: ED 20:42 → ICU 22:50
PROVIDERS: ADMIT Internal Medicine; ATTEND Specialist
DX: E11.00 Type 2 diabetes mellitus with hyperosmolarity without nonketotic hyperglycemic-hyperosmolar coma (NKHHC) (principal); N17.9 Acute kidney failure, unspecified; E11.65 Type 2 diabetes mellitus with hyperglycemia; I10 Essential (primary) hypertension; E05.90 Thyrotoxicosis, unspecified without thyrotoxic crisis or storm; E86.0 Dehydration; D69.6 Thrombocytopenia, unspecified; D64.9 Anemia, unspecified; T38.3X6A Underdosing of insulin and oral hypoglycemic [antidiabetic] drugs, initial encounter; Z86.19 Personal history of other infectious and parasitic diseases
CPT/HCPCS: 36415; 80048; 80053; 80061; 81001; 81025; 82009; 82040; 82803; 82947; 83036; 83735; 84100; 84132; 84443; 85025; 87150; 99284; 99285; A9270; J1650; J1815; 81003; 83690; 83721; 87086

== ENCOUNTER 2020-01-03 19:41 | Outpatient (CLI) | payer MEDICAID ==
--- NOTE | 2020-01-03 22:46 | XRAY Report ---
PROCEDURE: Cervical Spine 2 View INDICATIONS: NECK PAIN TECHNIQUE: 3 view(s) of the cervical spine were acquired. COMPARISON: None. FINDINGS: Bones: No fractures or dislocations to the T1 level. The lateral masses of C1 appear intact on the odontoid view. No suspicious bony lesions. There are multilevel degenerative changes with disc dise ase at C4-5 and C5-6. At these levels there are large anterior osteophytes and disc space narrowing. 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 Soft tissues: No prevertebral soft tissue swelling. IMPRESSION: 1. No acute abnormality. 2. Degenerative disc disease at C4-5 and C5-6. 3. 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 4. Recommend MRI of the cervical spine. Reviewed by: Elmer Bertrand on 01/03/2020 10:45 PM [facility] Approved by: Elmer Bertrand on 01/03/2020 10:45 PM [facility] Station ID: [id number]
== END 2020-01-03 19:42 | disposition home or self-care (01) ==
LOC: DI 19:41
PROVIDERS: ATTEND Physician Assistant
DX: M50.321 Other cervical disc degeneration at C4-C5 level (principal); R93.7 Abnormal findings on diagnostic imaging of other parts of musculoskeletal system

== ENCOUNTER 2020-01-14 08:00 | Outpatient (CLI) | payer MEDICAID ==
[2020-01-14 12:42] LABS: BASOPHILS % (AUTO) 0.4 %; EOSINOPHILS # (AUTO) 0.1 10^3/uL (0.0-0.7); EOSINOPHILS % (AUTO) 1.2 %; HGB - HEMOGLOBIN 10.8 g/dL (12.0-16.0); LYMPHOCYTES # (AUTO) 2.4 10^3/uL (1.5-3.5); LYMPHOCYTES % (AUTO) 33.2 %; MEAN CORPUSCULAR HEMOGLOBIN 24.1 pg (27.0-31.0); MEAN CORPUSCULAR VOLUME 80.2 fL (81.0-99.0); MEAN PLATELET VOLUME 11.7 fL (7.9-10.8); MONOCYTES # (AUTO) 0.5 10^3/uL (0.0-1.0); MONOCYTES % (AUTO) 6.2 %; NEUTROPHILS # (AUTO) 4.3 10^3/uL (1.5-6.6); NEUTROPHILS % (AUTO) 58.7 %; PLT - PLATELET COUNT 188 10^3/uL (130-450); RED BLOOD COUNT 4.49 10^6/uL (4.20-5.40); RED CELL DISTRIBUTION WIDTH 13.6 % (12.0-15.0); WHITE BLOOD COUNT 7.3 x10^3/uL (4.8-10.8)
[2020-01-14 13:05] LABS: ALBUMIN 3.5 g/dL (3.2-5.5); ALBUMIN/GLOBULIN RATIO 0.8 (1.0-2.2); BILIRUBIN,TOTAL 0.4 mg/dL (0.2-1.0); CALCIUM 9.5 mg/dL (8.5-10.3); CREATININE 0.4 mg/dL (0.4-1.0); TOTAL PROTEIN 7.7 g/dL (6.7-8.2)
[2020-01-15 13:52] LABS: HEPATITIS C ANTIBODY REACTIVE (NON-REACTIVE)
[2020-01-20 02:32] LABS: HCV RNA QNT <1.18 NOT DETECTED Log IU/mL (NOT DETECTED); HCV RNA QUANT RT PCR <15 NOT DETECTED IU/mL (NOT DETECTED)
== END 2020-01-14 23:59 | disposition home or self-care (01) ==
LOC: LAB.WCP 08:00
PROVIDERS: ATTEND Physician Assistant
DX: B18.2 Chronic viral hepatitis C (principal); M54.2 Cervicalgia
CPT/HCPCS: 36415; 80048; 80053; 85025; 86803; 87902

== ENCOUNTER 2020-01-24 16:10 | Outpatient (CLI) | payer MEDICAID ==
--- NOTE | 2020-01-24 17:48 | MRI Report ---
PROCEDURE: Cervical Spine W/O INDICATIONS: CERVICAL RADICULOPATHY, NECK PAIN TECHNIQUE: Noncontrast sagittal T1 spin echo and T2 fast spin echo, sagittal STIR, foraminal oblique sagittal T2 fast spin echo, and axial gradient echo or T2 fast spin echo through the cervical spine. COMPARISON: None. FINDINGS: Image quality: Excellent. Alignment and Curvature: There is normal bony alignment. Bones: Marrow demonstrates normal overall signal. C6, C7, and T1 vertebra are congenitally small wit h diminutive discs. Spinal Cord: Visualized spinal cord has normal size and signal. No cerebellar tonsillar herniation. Paraspinous Soft Tissues: No paravertebral masses. Prevertebral soft tissues are normal in thicknes s. C2-C3: No significant disc bulge. The foramina and central canal are patent. C3-C4: Diffuse disc bulge and uncovertebral hypertrophy cause mild right and moderate left foramina l stenosis. The central canal is slightly narrowed but patent. C4-C5: No significant disc bulge. Uncovertebral hypertrophy causes mild bilateral foraminal stenosis . The central canal is slightly narrowed but patent. C5-C6: Diffuse disc bulge asymmetric to the left and uncovertebral hypertrophy cause mild right and moderate left foraminal stenosis. The central canal has mild stenosis with mild flattening of the cor d at this level. C6-C7: The disc is diminutive likely congenital. The foramina and central canal are patent. C7-T1: The disc is diminutive likely congenital. The foramina and central canal are patent. IMPRESSION: 1. Disc disease at C3-4, C4-5, and C5-6 causing foraminal stenosis as above. 2. Mild central canal stenosis at C5-6 as above. 3. Congenitally small C6, C7, and T1 vertebra with diminutive discs but no foraminal or central canal stenosis at these levels. 4. No abnormal cord signal. Reviewed by: Elmer Bertrand on 01/24/2020 5:47 PM PST Approved by: Elmer Bertrand on 01/24/2020 5:47 PM PST Station ID: [id number]
== END 2020-01-24 16:11 | disposition home or self-care (01) ==
LOC: DI 16:10
PROVIDERS: ATTEND Physician Assistant
DX: M50.11 Cervical disc disorder with radiculopathy, high cervical region (principal); M48.02 Spinal stenosis, cervical region
CPT/HCPCS: 72141

== ENCOUNTER 2020-02-13 08:00 | Outpatient (CLI) | payer MEDICAID ==
[2020-02-13 18:47] LABS: BASOPHILS # (AUTO) 0.1 10^3/uL (0.0-0.1); BASOPHILS % (AUTO) 0.5 %; EOSINOPHILS # (AUTO) 0.1 10^3/uL (0.0-0.7); EOSINOPHILS % (AUTO) 1.2 %; HCT - HEMATOCRIT 34.4 % (37.0-47.0); HGB - HEMOGLOBIN 10.1 g/dL (12.0-16.0); LYMPHOCYTES # (AUTO) 3.3 10^3/uL (1.5-3.5); LYMPHOCYTES % (AUTO) 35.3 %; MEAN CORPUSCULAR HEMOGLOBIN 23.7 pg (27.0-31.0); MEAN CORPUSCULAR HGB CONC 29.4 g/dL (32.0-36.0); MEAN CORPUSCULAR VOLUME 80.8 fL (81.0-99.0); MEAN PLATELET VOLUME 11.5 fL (7.9-10.8); MONOCYTES # (AUTO) 0.5 10^3/uL (0.0-1.0); MONOCYTES % (AUTO) 5.5 %; NEUTROPHILS # (AUTO) 5.3 10^3/uL (1.5-6.6); NEUTROPHILS % (AUTO) 57.2 %; PLT - PLATELET COUNT 225 10^3/uL (130-450); RED BLOOD COUNT 4.26 10^6/uL (4.20-5.40); RED CELL DISTRIBUTION WIDTH 16.4 % (12.0-15.0); WHITE BLOOD COUNT 9.2 x10^3/uL (4.8-10.8)
[2020-02-13 18:53] LABS: ALBUMIN 3.8 g/dL (3.2-5.5); BILIRUBIN,TOTAL 0.3 mg/dL (0.2-1.0); CALCIUM 9.3 mg/dL (8.5-10.3); CREATININE 0.5 mg/dL (0.4-1.0); POTASSIUM 4.2 mmol/L (3.5-5.0); TOTAL PROTEIN 7.8 g/dL (6.7-8.2)
[2020-02-13 18:58] LABS: ESTIMATED AVERAGE GLUCOSE 177 mg/dL (70-100); HEMOGLOBIN A1c% 7.8 % (4.27-6.07)
[2020-02-13 19:11] LABS: THYROID STIMULATING HORMONE < 0.08 uIU/mL (0.34-5.60)
[2020-02-13 19:12] LABS: FREE T3 6.44 pg/mL (2.5-3.9)
[2020-02-13 19:13] LABS: FREE T4 (FREE THYROXINE) 2.13 ng/dL (0.58-1.64)
[2020-02-15 13:44] LABS: HEPATITIS C ANTIBODY REACTIVE (NON-REACTIVE)
[2020-02-19 20:31] LABS: HCV RNA QNT <1.18 NOT DETECTED Log IU/mL (NOT DETECTED); HCV RNA QUANT RT PCR <15 NOT DETECTED IU/mL (NOT DETECTED)
== END 2020-02-13 23:59 | disposition home or self-care (01) ==
LOC: LAB.WCP 08:00
PROVIDERS: ATTEND Physician Assistant
DX: E11.9 Type 2 diabetes mellitus without complications (principal); E05.90 Thyrotoxicosis, unspecified without thyrotoxic crisis or storm; B18.2 Chronic viral hepatitis C
CPT/HCPCS: 36415; 80053; 83036; 84439; 84443; 84481; 85025; 86803; 87522